=== PATIENT | male | born 1965 | race Caucasian/White ===

== ENCOUNTER 2017-06-02 15:44 | Inpatient (IN) | payer SELFPAY ==
[~2017-06-02] VITALS: Ht 185.4 cm; Wt 80.0 kg
[2017-06-02 15:56] VITALS: BP 174/98; PULSE 71; RESP 18; TEMP 98.1; O2SAT 99
--- NOTE | 2017-06-02 16:34 | RADRPT ---
EXAM DATE/TIME: 06/02/2017 16:21 [facility] COMPARISON: No previous studies available for comparison. INDICATIONS : Right ankle pain after fall. MEDICAL HISTORY : None. SURGICAL HISTORY : None. ENCOUNTER: Initial ACUITY: 1 day PAIN SCORE: 8/10 LOCATION: Right ankle. FINDINGS: Three view exam was performed of the right ankle. Trimalleolar fx with displacement. Disruption of a nkle mortis. Soft tissue swelling. CONCLUSION: Trilmalleolar fx. Phong Garcia MD on June 02, 2017 at 16:29 Board Certified Radiologist. This report was verified electronically.
--- NOTE | 2017-06-02 16:49 | RADRPT ---
EXAM DATE/TIME: 06/02/2017 16:25 [facility] COMPARISON: No previous studies available for comparison. INDICATIONS : Right foot pain after fall. MEDICAL HISTORY : None. SURGICAL HISTORY : None. ENCOUNTER: Initial ACUITY: 1 day PAIN SCORE: 8/10 LOCATION: Right foot. FINDINGS: Bimalleolar ankle fracture. Probable avulsion tarsal navicular., Difficult to appreciate because of positioning The forefoot intact. CT scan can be used to evaluate the hindfoot as necessary. CONCLUSION: Bimalleolar ankle fracture Possible small avulsion tarsal navicular. Romeo Garcia MD FACR on June 02, 2017 at 16:45 Board Certified Radiologist. This report was verified electronically.
--- NOTE | 2017-06-02 16:49 | PD ---
HPI Chief Complaint: Fall Time Seen by Provider: 16:23 Travel History International Travel<30 days: No Contact w/Intl Traveler<30days: No Traveled to known affect area: No History of Present Illness HPI 52-year-old male that presents to the ED for evaluation of right ankle injury. Per patient she was working for [employer] when he was on a step that was wet and he states knee went inward. Per patient he developed but severe deformity he called ambulance because he cannot walk on it. He was given morphine for the pain with some relief. He denies any chest pain or shortness of breath. No head injury. No previous injuries. His Czech speaker only and dermatology physician assistant services were offered but patient feels comfortable my Czech so he declined motor vehicle parts interpreter. He states that his pain currently is 4 out of 10 on the ankle. He denies any numbness, tingling, weakness. No open sores. Has no allergies to medication. Hasn't seen anybody for this. Injury occurred 1 hour ago. This is worker's comp. [facility] Past Medical History Medical History: Denies Significant Hx ?: Not Past Surgical History Surgical History: No Previous Surgery Social History Alcohol Use: No Tobacco Use: No Substance Use: No Allergies-Medications (Allergen,Severity, Reaction): Coded Allergies: No Known Allergies (Verified Allergy, Unknown, 06/02/17) Reported Meds & Prescriptions Reported Meds & Active Scripts Active No Active Prescriptions or Reported Medications Review of Systems Except as stated in HPI: all other systems reviewed are Neg Physical Exam Narrative GENERAL: SKIN: Warm and dry. HEAD: Atraumatic. Normocephalic. EYES: Pupils equal and round. No scleral icterus. No injection or drainage. ENT: No nasal bleeding or discharge. Mucous membranes pink and moist. Tongue is midline. No uvula deviation. NECK: Trachea midline. No JVD. CARDIOVASCULAR: Regular rate and rhythm. No murmurs, S3, S4. RESPIRATORY: No accessory muscle use. Clear to auscultation. Breath sounds equal bilaterally. GASTROINTESTINAL: Abdomen soft, non-tender, nondistended. Hepatic and splenic margins not palpable. MUSCULOSKELETAL: Extremities without clubbing, cyanosis, or edema. No obvious deformities. Full range of motion of the upper and lower extremities bilaterally. 2+ pulses bilaterally. Patient does have obvious deformity to the right ankle with bruising and swelling noted. Appears to be very unstable. Does appear to have good pulses and good capillary refill. Sensation intact. No open sores noted. NEUROLOGICAL: Awake and alert. No obvious cranial nerve deficits. Motor grossly within normal limits. Five out of 5 muscle strength in the arms and legs. Normal speech. PSYCHIATRIC: Appropriate mood and affect; insight and judgment normal. Data Data Last Documented VS Vital Signs Date Time Temp Pulse Resp B/P (MAP) Pulse Ox O2 Delivery O2 Flow Rate FiO2 06/02/17 16:57 69 15 111/68 (82) 99 Room Air 06/02/17 15:56 98.1 Orders Orders Ankle, Complete ([id number]) (06/02/17 16:10) Foot, Complete ([id number]) (06/02/17 16:10) Ice/Cold Pack (06/02/17 16:10) Electrocardiogram (06/02/17 16:31) Complete Blood Count With Diff (06/02/17 16:31) Basic Metabolic Panel (Bmp) (06/02/17 16:31) Prothrombin Time / Inr (Pt) (06/02/17 16:31) Act Partial Throm Time (Ptt) (06/02/17 16:31) Urinalysis - C+S If Indicated (06/02/17 16:31) Magnesium (Mg) (06/02/17 16:31) Chest, Single Ap (06/02/17 16:31) Iv Access Insert/Monitor (06/02/17 16:31) Splint Or Brace Apply/Monitor (06/02/17 16:31) Propofol 200 Mg/20 Ml Inj (Diprivan 200 (06/02/17 18:30) Ankle, Limited (Ap&Lat) (06/02/17 ) Morphine Inj (Morphine Inj) (06/02/17 19:00) Admit Order (Ed Use Only) (06/02/17 ) Labs Laboratory Tests Test 06/02/17 17:00 White Blood Count 11.9 TH/MM3 Red Blood Count 5.03 MIL/MM3 Hemoglobin 15.5 GM/DL Hematocrit 46.6 % Mean Corpuscular Volume 92.6 FL Mean Corpuscular Hemoglobin 30.8 PG Mean Corpuscular Hemoglobin Concent 33.3 % Red Cell Distribution Width 13.0 % Platelet Count 191 TH/MM3 Mean Platelet Volume 9.6 FL Neutrophils (%) (Auto) 86.1 % Lymphocytes (%) (Auto) 7.8 % Monocytes (%) (Auto) 5.5 % Eosinophils (%) (Auto) 0.3 % Basophils (%) (Auto) 0.3 % Neutrophils # (Auto) 10.3 TH/MM3 Lymphocytes # (Auto) 0.9 TH/MM3 Monocytes # (Auto) 0.7 TH/MM3 Eosinophils # (Auto) 0.0 TH/MM3 Basophils # (Auto) 0.0 TH/MM3 CBC Comment DIFF FINAL Differential Comment Prothrombin Time 10.4 SEC Prothromb Time International Ratio 1.0 RATIO Activated Partial Thromboplast Time 24.6 SEC Blood Urea Nitrogen 15 MG/DL Creatinine 1.06 MG/DL Random Glucose 88 MG/DL Calcium Level 8.5 MG/DL Magnesium Level 1.8 MG/DL Sodium Level 138 MEQ/L Potassium Level 4.0 MEQ/L Chloride Level 103 MEQ/L Carbon Dioxide Level 27.8 MEQ/L Anion Gap 7 MEQ/L Estimat Glomerular Filtration Rate 74 ML/MIN MDM Medical Decision Making Medical Screen Exam Complete: Yes Emergency Medical Condition: Yes Medical Record Reviewed: Yes Differential Diagnosis Fracture versus sprain versus strain versus dislocation Narrative Course 52-year-old male that presents to the ED for evaluation of ankle pain. Patient was properly examined and was found to have signs and symptoms concerning for fracture. X-rays were done. X-rays show significant fracture of the right ankle with displacement. Case will be signed out to incoming provider pending disposition and plan. I did spoke with Dr Pimentel over the phone who wanted us to reduce fracture and splint, admit to medicine and NPO after midnight. Scripts No Active Prescriptions or Reported Meds Luis Anderson Jun 02, 2017 16:49
[2017-06-02 16:57] VITALS: BP 111/68; PULSE 69; RESP 15; O2SAT 99
--- NOTE | 2017-06-02 17:25 | RADRPT ---
EXAM DATE/TIME: 06/02/2017 17:16 [facility] COMPARISON: No previous studies available for comparison. INDICATIONS : Evaluate for pneumonia, pneumothorax, or communicable disease. Pre op ankle surgery. MEDICAL HISTORY : None. SURGICAL HISTORY : None. ENCOUNTER: Initial ACUITY: 1 day PAIN SCORE: 0/10 LOCATION: Bilateral chest FINDINGS: A single view of the chest demonstrates the lungs to be symmetrically aerated without evidence of mas s, infiltrate or effusion. The cardiomediastinal contours are unremarkable. Osseous structures are intact. CONCLUSION: 1. No acute cardiopulmonary disease. Parth Escalante MD on June 02, 2017 at 17:23 Board Certified Radiologist. This report was verified electronically.
[2017-06-02 17:37] LABS: AUTOMATED NEUTROPHIL # 10.3 TH/MM3 (1.8-7.7); BASOPHIL % 0.3 % (0.0-2.0); EOSINOPHIL % 0.3 % (0.0-4.0); HEMATOCRIT 46.6 % (39.0-51.0); HEMOGLOBIN 15.5 GM/DL (13.0-17.0); LYMPH % 7.8 % (9.0-44.0); LYMPHOCYTE # 0.9 TH/MM3 (1.0-4.8); MEAN CELL VOLUME 92.6 FL (80.0-100.0); MEAN CORPUSCULAR HEMOGLOBIN 30.8 PG (27.0-34.0); MEAN CORPUSCULAR HGB CONC 33.3 % (32.0-36.0); MEAN PLATELET VOLUME 9.6 FL (7.0-11.0); MONO % 5.5 % (0.0-8.0); MONOCYTE # 0.7 TH/MM3 (0-0.9); NEUT % 86.1 % (16.0-70.0); PLATELET COUNT 191 TH/MM3 (150-450); RED BLOOD COUNT 5.03 MIL/MM3 (4.50-5.90); WHITE BLOOD COUNT 11.9 TH/MM3 (4.0-11.0)
[2017-06-02 17:43] LABS: PROTHROMBIN TIME - PATIENT 10.4 SEC (9.8-11.6)
[2017-06-02 17:51] LABS: BICARBONATE 27.8 MEQ/L (21.0-32.0); CALCIUM 8.5 MG/DL (8.5-10.1); CREATININE 1.06 MG/DL (0.60-1.30); MAGNESIUM 1.8 MG/DL (1.5-2.5)
--- NOTE | 2017-06-02 18:24 | PD ---
Physical Exam Date Seen by Provider: Jun 02, 2017 Time Seen by Provider: 18:21 Narrative I was asked by the attending physician, Dr. Clark, to perform conscious sedation with reduction of right trimalleolar fracture. Data Data Last Documented VS Vital Signs Date Time Temp Pulse Resp B/P (MAP) Pulse Ox O2 Delivery O2 Flow Rate FiO2 06/02/17 16:57 69 15 111/68 (82) 99 Room Air 06/02/17 15:56 98.1 Orders Orders Ankle, Complete ([id number]) (06/02/17 16:10) Foot, Complete ([id number]) (06/02/17 16:10) Ice/Cold Pack (06/02/17 16:10) Electrocardiogram (06/02/17 16:31) Complete Blood Count With Diff (06/02/17 16:31) Basic Metabolic Panel (Bmp) (06/02/17 16:31) Prothrombin Time / Inr (Pt) (06/02/17 16:31) Act Partial Throm Time (Ptt) (06/02/17 16:31) Urinalysis - C+S If Indicated (06/02/17 16:31) Magnesium (Mg) (06/02/17 16:31) Chest, Single Ap (06/02/17 16:31) Iv Access Insert/Monitor (06/02/17 16:31) Splint Or Brace Apply/Monitor (06/02/17 16:31) Propofol 200 Mg/20 Ml Inj (Diprivan 200 (06/02/17 18:30) Ankle, Limited (Ap&Lat) (06/02/17 ) Morphine Inj (Morphine Inj) (06/02/17 19:00) Admit Order (Ed Use Only) (06/02/17 ) Labs Laboratory Tests Test 06/02/17 17:00 White Blood Count 11.9 TH/MM3 Red Blood Count 5.03 MIL/MM3 Hemoglobin 15.5 GM/DL Hematocrit 46.6 % Mean Corpuscular Volume 92.6 FL Mean Corpuscular Hemoglobin 30.8 PG Mean Corpuscular Hemoglobin Concent 33.3 % Red Cell Distribution Width 13.0 % Platelet Count 191 TH/MM3 Mean Platelet Volume 9.6 FL Neutrophils (%) (Auto) 86.1 % Lymphocytes (%) (Auto) 7.8 % Monocytes (%) (Auto) 5.5 % Eosinophils (%) (Auto) 0.3 % Basophils (%) (Auto) 0.3 % Neutrophils # (Auto) 10.3 TH/MM3 Lymphocytes # (Auto) 0.9 TH/MM3 Monocytes # (Auto) 0.7 TH/MM3 Eosinophils # (Auto) 0.0 TH/MM3 Basophils # (Auto) 0.0 TH/MM3 CBC Comment DIFF FINAL Differential Comment Prothrombin Time 10.4 SEC Prothromb Time International Ratio 1.0 RATIO Activated Partial Thromboplast Time 24.6 SEC Blood Urea Nitrogen 15 MG/DL Creatinine 1.06 MG/DL Random Glucose 88 MG/DL Calcium Level 8.5 MG/DL Magnesium Level 1.8 MG/DL Sodium Level 138 MEQ/L Potassium Level 4.0 MEQ/L Chloride Level 103 MEQ/L Carbon Dioxide Level 27.8 MEQ/L Anion Gap 7 MEQ/L Estimat Glomerular Filtration Rate 74 ML/MIN [facility] Medical Record Reviewed: Yes Supervised Visit with VERONIQUE: No Interpretation(s) Laboratory Tests Test 06/02/17 17:00 White Blood Count 11.9 TH/MM3 Red Blood Count 5.03 MIL/MM3 Hemoglobin 15.5 GM/DL Hematocrit 46.6 % Mean Corpuscular Volume 92.6 FL Mean Corpuscular Hemoglobin 30.8 PG Mean Corpuscular Hemoglobin Concent 33.3 % Red Cell Distribution Width 13.0 % Platelet Count 191 TH/MM3 Mean Platelet Volume 9.6 FL Neutrophils (%) (Auto) 86.1 % Lymphocytes (%) (Auto) 7.8 % Monocytes (%) (Auto) 5.5 % Eosinophils (%) (Auto) 0.3 % Basophils (%) (Auto) 0.3 % Neutrophils # (Auto) 10.3 TH/MM3 Lymphocytes # (Auto) 0.9 TH/MM3 Monocytes # (Auto) 0.7 TH/MM3 Eosinophils # (Auto) 0.0 TH/MM3 Basophils # (Auto) 0.0 TH/MM3 CBC Comment DIFF FINAL Differential Comment Prothrombin Time 10.4 SEC Prothromb Time International Ratio 1.0 RATIO Activated Partial Thromboplast Time 24.6 SEC Blood Urea Nitrogen 15 MG/DL Creatinine 1.06 MG/DL Random Glucose 88 MG/DL Calcium Level 8.5 MG/DL Magnesium Level 1.8 MG/DL Sodium Level 138 MEQ/L Potassium Level 4.0 MEQ/L Chloride Level 103 MEQ/L Carbon Dioxide Level 27.8 MEQ/L Anion Gap 7 MEQ/L Estimat Glomerular Filtration Rate 74 ML/MIN Last Impressions Chest X-Ray 06/02/17 1631 Signed Impressions: Service Date/Time: Friday, June 02, 2017 17:16 - CONCLUSION: 1. No acute cardiopulmonary disease. Parth Escalante MD Foot X-Ray 06/02/17 1610 Signed Impressions: Service Date/Time: Friday, June 02, 2017 16:25 - CONCLUSION: Bimalleolar ankle fracture Possible small avulsion tarsal navicular. Romeo Garcia MD FACR Ankle X-Ray 06/02/17 1610 Signed Impressions: Service Date/Time: Friday, June 02, 2017 16:21 - CONCLUSION: Trilmalleolar fx. Phong Garcia MD Differential Diagnosis Differential diagnosis includes fracture, dislocation, contusion, hematoma, sprain, strain, fracture with dislocation. Narrative Course The patient was initially evaluated by the attending physician, Dr. Clark. Please refer to the initial history, physical, diagnostic evaluation, treatment modality plan. I was asked by the attending physician to perform conscious sedation and reduced the right trimalleolar fracture. I discussed risk and benefits with the family member who translated to the patient per his request. The patient has no previous medical problems, has undergone colonoscopy with sedation in the past without difficulty. He denies any history of respiratory or cardiac issues. He denies any allergies. The patient was placed on cardiac telemetry monitoring and continuous pulse oximetry monitoring. O2 via nasal cannula was placed and the patient was placed on CO2 monitoring. The patient was administered propofol intravenously in the right ankle was reduced. The ankle was then splinted using a Flores splint, the patient was neurovascularly intact afterwards. Postreduction x-ray was performed. X-ray shows persistent widening of the mortise, fracture was unstable. Procedures Procedure Narrative After the risks and benefits were discussed the following procedure was performed: MODERATE SEDATION: The patient was placed on a threat monitoring analyst and pulse oximetry. An ambu bag and suction was immediately available at bedside. The patient was monitored by the nurse. Oxygen saturation, heart rate and blood pressure were monitored. Procedural sedation was acheived using [*] . The patient was observed until awake and alert. Procedural Sedation time in attendance was 30 minutes. The right ankle was reduced under conscious sedation using propofol. The ankle was reduced and then placed in a Flores splint. The patient was neurovascularly intact. Postreduction x-ray was obtained. The patient tolerated the procedure without difficulty. Diagnosis Primary Impression: Closed right trimalleolar fracture Qualified Codes: S82.851A - Displaced trimalleolar fracture of right lower leg , initial encounter for closed fracture Admitting Information Admitting Physician Requests: Admit Scripts No Active Prescriptions or Reported Meds Condition: Stable Ellis Farooq MD Jun 02, 2017 18:24
[2017-06-02] MEDS ORDERED: PROPOFOL 200 MG/20 ML AMP IV ONE (18:30)
[2017-06-02] MEDS ORDERED: MORPHINE SULFATE 2 MG/ML INJ IV PUSH ONE (19:00)
[2017-06-02] MEDS ORDERED: NALOXONE HCL 0.4 MG/ML AMP IV PUSH PRN (19:15)
--- NOTE | 2017-06-02 19:17 | RADRPT ---
EXAM DATE/TIME: 06/02/2017 18:41 [facility] COMPARISON: No previous studies available for comparison. INDICATIONS : Post reduction right ankle fracture MEDICAL HISTORY : None. SURGICAL HISTORY : None. ENCOUNTER: Initial ACUITY: 1 day PAIN SCORE: Non-responsive. LOCATION: Bilateral chest FINDINGS: Two view examination was performed of the right ankle with overlying casting material. There are frac tures of the distal tibia and fibula. There is widening of the medial mortise with transverse fractur e through the base of the medial malleolus. There is a slightly impacted fibular fracture with an obl ique fracture on the lateral film. The calcaneus and the tail is are unremarkable. CONCLUSION: Fractures of the tibia and fibula as described above. Persistent widening of the medial mortise. Lico Myrick MD on June 02, 2017 at 19:13 Board Certified Radiologist. This report was verified electronically.
[2017-06-02 20:34] VITALS: BP 116/73; PULSE 82; RESP 18; O2SAT 100
[2017-06-02 20:58] LABS: BILIRUBIN, URINE NEG (NEG); BLOOD, URINE NEG (NEG); GLUCOSE,URINE NEG (NEG); KETONE, URINE 10 mg/dL (NEG); MUCUS URINE FEW /lpf (OCC); NITRITE,URINE NEG (NEG); URINE COLOR YELLOW (YELLW/STRAW); URINE LEUKOCYTE ESTERASE NEG (NEG)
[2017-06-02 21:05] VITALS: BP 146/79; PULSE 70; RESP 17; TEMP 98.8; O2SAT 98
[2017-06-02] MEDS ORDERED: POVIDONE IODINE 5% (ANTISEPSIS KIT) 4 APPLICATIONS EACH NARE PRN (22:45)
[2017-06-02] MEDS ORDERED: CHLORHEXIDINE GLUCONATE 2 % 1 PACK (2 CLOTHS) TOPICAL PRN (22:45)
[2017-06-02] MEDS ORDERED: INSULIN HUMAN REGULAR 1,000 UNITS/10 ML VIAL SQ PRN (22:45)
[2017-06-02] MEDS ORDERED: METOPROLOL TARTRATE 25 MG TAB PO PRN (22:45)
[2017-06-02] MEDS ORDERED: LACTATED RINGER'S 1000 ML IV PRN (22:45)
[2017-06-02] MEDS ORDERED: SODIUM CHLORID 0.9% 500 ML IV PRN (22:45)
[2017-06-02] MEDS: MORPHINE SULFATE 2 MG/ML INJ IV PUSH PRN (22:51)
[2017-06-02] MEDS: SODIUM CHLORIDE 0.9% FLUSH 10 ML FLUSH IV FLUSH SCH (22:51)
--- NOTE | 2017-06-02 23:20 | HHI.HP ---
HPI Service [facility] Primary Care Physician Unknown Admission Diagnosis trimalleolar fracture Diagnoses: (1) Closed right trimalleolar fracture Chief Complaint: slip and fall while working; subsequent right ankle deformity Travel History International Travel<30 Days: No Contact w/Intl Traveler <30 Da: No Traveled to Known Affected Are: No History of Present Illness Mr. 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 He had a significant deformity to right ankle and reported to the ED. Radiographic examination in the ED showed trimalleolar fracture with displacement and a manual reduction was attempted with sedation but was not effective in realigning bones. The patient is admitted to the hospitalist service for pre- operative management and orthopedic surgery is consulted for surgical repair in a.m. The patient is seen in his hospital room. The [employer] tele-interpretation system is used for communication. Patient speaks minimal Liberian and prefers instruction in Togolese. The patient states that he was at work delivering for [employer] when he slipped on a wet floor with his right foot and fell on the ground. He said his right ankle appeared quite deformed and he was extremely scared initially. He was unable to bear weight on the right ankle and had to be brought to the hospital for evaluation. He reports minimal right ankle pain at the time of my visit after being medicated with when necessary IV morphine. He reports satisfaction with current analgesic regimen. He reported that severe pain in the right ankle occurred once he came to the ER. He denies any recent illness, fever, chills, cough, chest pain, shortness of breath, nausea, vomiting, diarrhea, or constipation. Review of Systems Except as stated in HPI: all other systems reviewed are Neg Past Family Social History Past Medical History JACK Tobacco Abuse . Past Surgical History Colonoscopy last year Cardiac catheterization 8 years ago - no CAD was found per patient . Reported Medications Denies any routine medications . Allergies: Coded Allergies: No Known Allergies (Verified Allergy, Unknown, 06/02/17) Active Ordered Medications Current Medications Propofol (Diprivan 200 Mg/20 ml Inj) 100 mg ONCE ONCE IV Last administered on 06/02/17at 18:55; Start 06/02/17 at 18:30; Stop 06/02/17 at 18:31; Status DC Morphine Sulfate (Morphine Inj) 4 mg ONCE ONCE IV PUSH Last administered on 03/10at 20:32; Start 06/02/17 at 19:00; Stop 06/02/17 at 19:01; Status DC Sodium Chloride (NS Flush) 2 ml UNSCH PRN IV FLUSH FLUSH AFTER USING IV ACCESS ; Start 06/02/17 at 19:15 Sodium Chloride (NS Flush) 2 ml BID IV FLUSH Last administered on 06/02/17at 22: 51; Start 06/02/17 at 21:00 Naloxone HCl (Narcan Inj) 0.4 mg UNSCH PRN IV PUSH SEE LABEL COMMENTS; Start at 19:15 Morphine Sulfate (Morphine Inj) 2 mg Q3H PRN IV PUSH pain >5 Last administered on 06/02/17at 22:51; Start 06/02/17 at 19:15 Lactated Ringer's 1,000 ml @ 30 mls/hr Q24H PRN IV SEE LABEL COMMENTS; Start at 22:45; Stop 06/05/17 at 22:44 Sodium Chloride 500 ml @ 30 mls/hr [id number] PRN IV SEE LABEL COMMENTS; Start 03/10 at 22:45; Stop 06/05/17 at 22:44 Metoprolol Tartrate (Lopressor) 25 mg HUMANE OFFICER PRN PO SEE LABEL COMMENTS; Start 06/02/17 at 22:45; Stop 06/05/17 at 22:44 Povidone Iodine (Betadine 5% Antisepsis Kit) 1 applic [employer]ANE [employer]ICER PRN EACH NARE SEE LABEL COMMENTS; Start 06/02/17 at 22:45; Stop 06/05/17 at 22:44 Chlorhexidine Gluconate (Chlorhexidine 2% Cloth) 3 pack [employer]ER PRN TOPICAL SEE LABEL COMMENTS; Start 06/02/17 at 22:45; Stop 06/05/17 at 22:44 Insulin Human Regular (NovoLIN R INJ) See Protocol Table ... HUMANE OFFICER PRN SQ SEE PROTOCOL TABLE; Start 06/02/17 at 22:45; Stop 06/05/17 at 22:44 . Family History Father with prostate cancer, pancreatic cancer, and hypertension Mother with hypertension at age 79 y/o No family history of adverse anesthesia reactions . Social History Tobacco: Smokes 6-7 cigarettes per day Wednesday through Wednesday only Alcohol: Very rare social use Illicit Drugs: Denies - states has never used . Physical Exam Vital Signs Vital Signs Date Time Temp Pulse Resp B/P (MAP) Pulse Ox O2 Delivery O2 Flow Rate FiO2 06/02/17 21:05 98.8 70 17 146/79 (101) 98 06/02/17 20:50 06/02/17 20:37 Nasal Cannula 2.00 06/02/17 20:34 82 18 116/73 (87) 100 Nasal Cannula 2.00 06/02/17 16:57 69 15 111/68 (82) 99 Room Air 06/02/17 15:56 98.1 71 18 174/98 (123) 99 Physical Exam GENERAL: This is a pleasant Togolese-speaking male patient, in no apparent distress. SKIN: No rashes, ecchymoses or lesions. Cool and dry. HEAD: Atraumatic. Normocephalic. EYES: No scleral icterus. No injection or drainage. ENT: Nose without bleeding, purulent drainage. NECK: Trachea midline. No JVD or lymphadenopathy. CARDIOVASCULAR: Regular rate and rhythm without murmurs, gallops, or rubs. RESPIRATORY: Clear to auscultation. Breath sounds equal bilaterally. No wheezes , rales, or rhonchi. GASTROINTESTINAL: Abdomen soft, non-tender, nondistended. No guarding. MUSCULOSKELETAL: Extremities without clubbing, cyanosis. No calf tenderness on left. Right lower extremity in splint - able to wiggle toes, reports intact sensation, capillary refill is brisk. NEUROLOGICAL: Awake and alert. Motor and sensory grossly within normal limits. Normal speech. . Laboratory Laboratory Tests Test 06/02/17 17:00 06/02/17 20:30 White Blood Count 11.9 Red Blood Count 5.03 Hemoglobin 15.5 Hematocrit 46.6 Mean Corpuscular Volume 92.6 Mean Corpuscular Hemoglobin 30.8 Mean Corpuscular Hemoglobin Concent 33.3 Red Cell Distribution Width 13.0 Platelet Count 191 Mean Platelet Volume 9.6 Neutrophils (%) (Auto) 86.1 Lymphocytes (%) (Auto) 7.8 Monocytes (%) (Auto) 5.5 Eosinophils (%) (Auto) 0.3 Basophils (%) (Auto) 0.3 Neutrophils # (Auto) 10.3 Lymphocytes # (Auto) 0.9 Monocytes # (Auto) 0.7 Eosinophils # (Auto) 0.0 Basophils # (Auto) 0.0 CBC Comment DIFF FINAL Differential Comment Prothrombin Time 10.4 Prothromb Time International Ratio 1.0 Activated Partial Thromboplast Time 24.6 Blood Urea Nitrogen 15 Creatinine 1.06 Random Glucose 88 Calcium Level 8.5 Magnesium Level 1.8 Sodium Level 138 Potassium Level 4.0 Chloride Level 103 Carbon Dioxide Level 27.8 Anion Gap 7 Estimat Glomerular Filtration Rate 74 Urine Color YELLOW Urine Turbidity CLEAR Urine pH 5.0 Urine Specific [place] 1.021 Urine Protein NEG Urine Glucose (UA) NEG Urine Ketones 10 Urine Occult Blood NEG Urine Nitrite NEG Urine Bilirubin NEG Urine Urobilinogen LESS THAN 2.0 Urine Leukocyte Esterase NEG Urine WBC 1 Urine Mucus FEW Microscopic Urinalysis Comment CULT NOT INDICATED Result Diagram: 06/02/17 1700 06/02/17 1700 Imaging Last Impressions Chest X-Ray 06/02/17 1631 Signed Impressions: Service Date/Time: Friday, June 02, 2017 17:16 - CONCLUSION: 1. No acute cardiopulmonary disease. Parth Escalante MD Foot X-Ray 06/02/17 1610 Signed Impressions: Service Date/Time: Friday, June 02, 2017 16:25 - CONCLUSION: Bimalleolar ankle fracture Possible small avulsion tarsal navicular. Romeo Garcia MD FACR Ankle X-Ray 06/02/17 1610 Signed Impressions: Service Date/Time: Friday, June 02, 2017 16:21 - CONCLUSION: Trilmalleolar fx. Phong Garcia MD . Caprini VTE Risk Assessment Caprini VTE Risk Assessment: Mod/High Risk (score >= 2) Caprini Risk Assessment Model Point Value = 1 Point Value = 2 Point Value = 3 Point Value = 5 Age 41-60 Minor surgery BMI > 25 kg/m2 Swollen legs Varicose veins or History of unexplained or recurrent spontaneous Oral contraceptives or hormone replacement Sepsis (< 1 month) Serious lung disease, including pneumonia (< 1 month) Abnormal pulmonary function Acute myocardial infarction Congestive heart failure (< 1 month) History of inflammatory bowel disease Medical patient at bed rest Age 61-74 Arthroscopic surgery Major open surgery (> 45 min) Laparoscopic surgery (> 45 min) Malignancy Confined to bed (> 72 hours) Immobilizing plaster cast Central venous access Age >= 75 History of VTE Family history of VTE Factor V Leiden Prothrombin [id number] Lupus anticoagulant Anticardiolipin antibodies Elevated serum homocysteine Heparin-induced thrombocytopenia Other congenital or acquired thrombophilia Stroke (< 1 month) Elective arthroplasty Hip, pelvis, or leg fracture Acute spinal cord injury (< 1 month) Prophylaxis Regimen Total Risk Factor Score Risk Level Prophylaxis Regimen 0-1 Low Early ambulation 2 Moderate Order ONE of the following: *Sequential Compression Device (SCD) *Heparin 5000 units SQ BID 3-4 Higher Order ONE of the following medications: *Heparin 5000 units SQ TID *Enoxaparin/Lovenox 40 mg SQ daily (WT < 150 kg, CrCl > 30 mL/min) *Enoxaparin/Lovenox 30 mg SQ daily (WT < 150 kg, CrCl > 10-29 mL/min) *Enoxaparin/Lovenox 30 mg SQ BID (WT < 150 kg, CrCl > 30 mL/min) AND/OR *Sequential Compression Device (SCD) 5 or more Highest Order ONE of the following medications: *Heparin 5000 units SQ TID (Preferred with Epidurals) *Enoxaparin/Lovenox 40 mg SQ daily (WT < 150 kg, CrCl > 30 mL/min) *Enoxaparin/Lovenox 30 mg SQ daily (WT < 150 kg, CrCl > 10-29 mL/min) *Enoxaparin/Lovenox 30 mg SQ BID (WT < 150 kg, CrCl > 30 mL/min) AND *Sequential Compression Device (SCD) Assessment and Plan Problem List: (1) Closed right trimalleolar fracture ICD Code: S82.851A - Displaced trimalleolar fracture of right lower leg, initial encounter for closed fracture Status: Acute (2) Tobacco abuse ICD Code: Z72.0 - Tobacco use Assessment and Plan Mr. 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 He had a significant deformity to right ankle and reported to the ED. Radiographic examination in the ED showed trimalleolar fracture with displacement and a manual reduction was attempted with sedation but was not effective in realigning bones. The patient is admitted to the hospitalist service for pre- operative management and orthopedic surgery is consulted for surgical repair in a.m. Closed right trimalleolar fracture - right ankle splinted - orthopedic surgeon consulted - Dr. Wing Kramer - Morphine 2 mg IV q3h PRN pain Tobacco abuse - recommended smoking cessation JACK - patient was advised to lose weight - CPAP not recommended yet - discussed with RN to monitor patient closely DVT prophylaxis - SCDs/TEDs Discussed Condition With Patient, RN, and Dr. Santana . Physician Certification 2 Midnight Certification Type: Admission for Inpatient Services Order for Inpatient Services The services are ordered in accordance with Medicare regulations or non- Medicare payer requirements, as applicable. In the case of services not specified as inpatient-only, they are appropriately provided as inpatient services in accordance with the 2-midnight benchmark. Estimated LOS (days): 2 days is the estimated time the patient will need to remain in the hospital, assuming treatment plan goals are met and no additional complications. Post-Hospital Plan: Home Problem Qualifiers (1) Closed right trimalleolar fracture: Qualified Codes: S82.851A - Displaced trimalleolar fracture of right lower leg , initial encounter for closed fracture Aditi Douglas Jun 02, 2017 23:19
[2017-06-03] VITALS (14 sets, daily range): BP systolic 132–147; BP diastolic 74–87; PULSE 54–81; RESP 17–18; TEMP 97.5–99.7; O2SAT 98–100
[2017-06-03] MEDS: MORPHINE SULFATE 2 MG/ML INJ IV PUSH PRN ×4 (02:16→11:07)
[2017-06-03] MEDS: SODIUM CHLORIDE 0.9% FLUSH 10 ML FLUSH IV FLUSH PRN ×4 (02:16→12:57)
[2017-06-03 07:57] LABS: AUTOMATED NEUTROPHIL # 6.3 TH/MM3 (1.8-7.7); BASOPHIL % 0.3 % (0.0-2.0); EOSINOPHIL # 0.1 TH/MM3 (0-0.4); EOSINOPHIL % 0.7 % (0.0-4.0); HEMATOCRIT 45.3 % (39.0-51.0); HEMOGLOBIN 15.3 GM/DL (13.0-17.0); LYMPH % 17.8 % (9.0-44.0); LYMPHOCYTE # 1.6 TH/MM3 (1.0-4.8); MEAN CELL VOLUME 92.1 FL (80.0-100.0); MEAN CORPUSCULAR HEMOGLOBIN 31.1 PG (27.0-34.0); MEAN CORPUSCULAR HGB CONC 33.8 % (32.0-36.0); MEAN PLATELET VOLUME 9.5 FL (7.0-11.0); MONOCYTE # 0.8 TH/MM3 (0-0.9); NEUT % 72.2 % (16.0-70.0); PLATELET COUNT 184 TH/MM3 (150-450); RED BLOOD COUNT 4.92 MIL/MM3 (4.50-5.90); RED CELL DISTRIBUTION WIDTH 13.2 % (11.6-17.2); WHITE BLOOD COUNT 8.8 TH/MM3 (4.0-11.0)
[2017-06-03] MEDS: SODIUM CHLORIDE 0.9% FLUSH 10 ML FLUSH IV FLUSH SCH ×2 (08:11→20:11)
[2017-06-03 08:14] LABS: BICARBONATE 26.1 MEQ/L (21.0-32.0); CALCIUM 8.3 MG/DL (8.5-10.1); CREATININE 1.16 MG/DL (0.60-1.30)
[2017-06-03] MEDS ORDERED: PROPOFOL 200 MG/20 ML AMP IV ONE (12:00)
[2017-06-03] MEDS ORDERED: ONDANSETRON HCL 4 MG/2 ML VIAL IV ONE (12:00)
[2017-06-03] MEDS ORDERED: ePHEDrine/NS 25 MG/5 ML SYRINGE IV ONE (12:00)
[2017-06-03] MEDS ORDERED: LIDOCAINE HCL 1% PF 5 ML SYRINGE OTHER ONE (12:00)
[2017-06-03] MEDS ORDERED: DEXAMETHASONE SOD PHOS 4 MG/ML VIAL IV ONE (12:00)
--- NOTE | 2017-06-03 12:39 | RADRPT ---
EXAM DATE/TIME: 06/03/2017 12:10 [facility] COMPARISON: CT ANKLE RIGHT W/O CONTRAST, June 03, 2017, 12:10. INDICATIONS : Right ankle fracture status post fall. RADIATION DOSE: 7.29 CTDIvol (mGy) ; Combined studies MEDICAL HISTORY : None SURGICAL HISTORY : None. ENCOUNTER: Initial ACUITY: 1 day PAIN SCALE: 5/10 LOCATION: Right ankle TECHNIQUE: Volumetric scanning of the foot was performed. Using automated exposure control and adjustment of th e mA and/or kV according to patient size, radiation dose was kept as low as reasonably achievable to obtain optimal diagnostic quality images. DICOM format image data is available electronically for re view and comparison. FINDINGS: BONES: No evidence of fracture. Alignment is within normal limits. Prominent os navicularis. JOINTS: No evidence of joint narrowing or effusion. SOFT TISSUES: Muscles, tendons, and neurovascular structures are grossly unremarkable. No evidence of mass, organiz ed fluid collection, or foreign body. CONCLUSION: Normal examination. Os navicularis without evidence of fracture. Tibia and fibula fractures better se en on the CT the ankle. Lico Myrick MD on June 03, 2017 at 12:35 Board Certified Radiologist. This report was verified electronically.
--- NOTE | 2017-06-03 13:13 | RADRPT ---
EXAM DATE/TIME: 06/03/2017 12:10 [facility] COMPARISON: No previous studies available for comparison. INDICATIONS : Right ankle fracture status post fall. RADIATION DOSE: 7.29 CTDIvol (mGy) ; Combined studies MEDICAL HISTORY : None SURGICAL HISTORY : None. ENCOUNTER: Initial ACUITY: 1 day PAIN SCALE: 5/10 LOCATION: Right ankle TECHNIQUE: Volumetric scanning of the ankle was performed. Using automated exposure control and adjustment of t he mA and/or kV according to patient size, radiation dose was kept as low as reasonably achievable to obtain optimal diagnostic quality images. DICOM format image data is available electronically for review and comparison. FINDINGS: CT Scan of the ankle was performed. There is a fracture through the posterior malleolus with some pr oximal displacement and posterior displacement of the fracture. The ankle Mortis is opened anteriorl y. There is a small triangular bone fragment between the distal tibia and the posterior malleolar fr agment. There is a transverse fragment of the medial malleolus which is still adjacent to the talus. The dis keke tibia has shifted medially and there is marked opening of the medial Mortis. There is an oblique fracture through the distal fibula metaphysis just at the level of the tibial blanca fond. There is slight medial angulation of the fibular fracture. The distal fibula does abut the di stal tibia. The talar dome is unremarkable. The calcaneus is unremarkable. CONCLUSION: Fractures of both the posterior and medial malleoli with widening of the tibia talar joint both anter iorly and medially. Oblique, slightly angled medial metaphyseal fracture. iLco Myrick MD on June 03, 2017 at 12:32 Board Certified Radiologist. This report was verified electronically.
--- NOTE | 2017-06-03 13:15 | HHI.PR ---
Subjective Remarks pain controlled no chornic medical problems, smoker no pain complains going for surgery today works at [employer] - missed a step and fall Objective Vitals Vital Signs Date Time Temp Pulse Resp B/P (MAP) Pulse Ox O2 Delivery O2 Flow Rate FiO2 06/03/17 11:25 58 06/03/17 09:16 54 06/03/17 08:00 97.5 57 18 134/76 (95) 99 06/03/17 07:37 72 06/03/17 06:44 70 06/03/17 04:05 98.6 70 18 142/82 (102) 99 06/03/17 04:00 70 06/03/17 00:05 99.7 74 18 144/83 (103) 98 06/03/17 00:00 81 06/02/17 23:06 98 Nasal Cannula 2.00 06/02/17 21:05 98.8 70 17 146/79 (101) 98 06/02/17 20:50 06/02/17 20:37 Nasal Cannula 2.00 06/02/17 20:34 82 18 116/73 (87) 100 Nasal Cannula 2.00 06/02/17 16:57 69 15 111/68 (82) 99 Room Air 06/02/17 15:56 98.1 71 18 174/98 (123) 99 I/O 06/02/17 06/02/17 06/02/17 06/03/17 06/03/17 06/03/17 07:00 15:00 23:00 07:00 15:00 23:00 Intake Total 240 ml 0 ml Output Total 175 ml Balance 240 ml -175 ml Intake Oral 240 ml 0 ml Output Urine Total 175 ml # Voids 0 # Bowel Movements 0 0 Result Diagram: 06/03/17 0642 06/03/17 0642 Imaging Last Impressions Lower Extremity CT 06/03/17 0000 Signed Impressions: Service Date/Time: May 12:10 - CONCLUSION: Normal examination. Os navicularis without evidence of fracture. Tibia and fibula fractures better seen on the CT the ankle. Lico Myrick MD Chest X-Ray 06/02/17 1631 Signed Impressions: Service Date/Time: Friday, June 02, 2017 17:16 - CONCLUSION: 1. No acute cardiopulmonary disease. Parth Escalante MD Foot X-Ray 06/02/17 1610 Signed Impressions: Service Date/Time: Friday, June 02, 2017 16:25 - CONCLUSION: Bimalleolar ankle fracture Possible small avulsion tarsal navicular. Romeo Garcia MD FACR Ankle X-Ray 06/02/17 1610 Signed Impressions: Service Date/Time: Friday, June 02, 2017 16:21 - CONCLUSION: Trilmalleolar fx. Phong Garcia MD Objective Remarks awake and alert,. no acute distress lungs clear regular rhythm abdomen soft right LE- - elastic dressin/splint in place A/P Problem List: (1) Closed right trimalleolar fracture ICD Code: S82.851A - Displaced trimalleolar fracture of right lower leg, initial encounter for closed fracture Status: Acute (2) Tobacco abuse ICD Code: Z72.0 - Tobacco use Assessment and Plan Mr. 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 He had a significant deformity to right ankle and reported to the ED. Radiographic examination in the ED showed trimalleolar fracture with displacement and a manual reduction was attempted with sedation but was not effective in realigning bones. The patient is admitted to the hospitalist service for pre- operative management and orthopedic surgery is consulted for surgical repair in a.m. Closed right trimalleolar fracture - right ankle splinted - orthopedic surgeon consulted - Dr. Wing Kramer- taking him to OR this pm - prn pain meds - PT eval post surgery Tobacco abuse - recommended smoking cessation - counselled JACK - patient was advised to lose weight - CPAP not recommended yet - discussed with RN to monitor patient closely DVT prophylaxis post op - will defer to Ortho - choice - SCDs/TEDs discussed with patient and at bedside DC planning- - per family- workman's comp Problem Qualifiers (1) Closed right trimalleolar fracture: Qualified Codes: S82.851A - Displaced trimalleolar fracture of right lower leg , initial encounter for closed fracture Ashley Deutsch MD Jun 03, 2017 13:15
[2017-06-03] MEDS ORDERED: ceFAZolin 2 GM PREMIX 50 ML ONE (13:40)
[2017-06-03] MEDS ORDERED: GENTAMICIN SULFATE 80 MG/2 ML VIAL ONE (13:46)
[2017-06-03] MEDS ORDERED: HYDROmorphone HCL PF 2 MG/ML VIAL ONE (13:59)
[2017-06-03] MEDS ORDERED: MORPHINE SULFATE 4 MG/ML INJ ONE (14:10)
[2017-06-03] MEDS ORDERED: BUPIVACAINE/EPINEPHRINE 0.25% 50 ML VIAL ONE (14:57)
[2017-06-03] MEDS ORDERED: MIDAZOLAM HCL 2 MG/2 ML VIAL ONE (15:10)
[2017-06-03] MEDS ORDERED: ACETAMINOPHEN 1000 MG/100 ML 100 ML IV ONE (15:12)
--- NOTE | 2017-06-03 16:16 | EKG ---
Date Performed: 06/02/2017 Time Performed: 16:58:06 PTAGE: 52 years EKG: Sinus rhythm WITH FIRST DEGREE AV BLOCK ABNORMAL ECG NO PREVIOUS TRACING DOCTOR: Vivian Blair Interpretating Date/Time 06/03/2017 16:14:42
--- NOTE | 2017-06-03 16:34 | PD.CONS ---
HPI Service Orthopedic Surgeons Consult Requested By Get Reason for Consult Fracture of the right ankle Primary Care Physician Unknown Admission Diagnosis trimalleolar fracture Diagnoses: (1) Closed right trimalleolar fracture Diagnosis: Principal (2) Tobacco abuse Diagnosis: Principal Chief Complaint: Pain in the right ankle after a fall History of Present Illness This patient is a 52-year-old white male who works for a [email or web address]. He was stepping off his truck when he misstepped came down several feet and landed awkwardly on his right ankle and foot. He has an obvious deformity and pain and could not ambulate. He was brought to [facility] emergency room. He was evaluated and treated. He was admitted to the medical service and I have been asked to see him in consultation regarding the same Review of Systems Constitutional: DENIES: Diaphoretic episodes, Fatigue, Fever, Weight gain, Weight loss, Chills, Dizziness, Change in appetite, Night Sweats Endocrine: DENIES: Heat/cold intolerance, Polydipsia, Polyuria, Polyphagia Eyes: DENIES: Blurred vision, Diplopia, Eye inflammation, Eye pain, Vision loss , Photosensitivity, Double Vision Ears, nose, mouth, throat: DENIES: Tinnitus, Hearing loss, Vertigo, Nasal discharge, Oral lesions, Throat pain, Hoarseness, Ear Pain, Running Nose, Epistaxis, Sinus Pain, Toothache, Odynophagia Respiratory: DENIES: Apneas, Cough, Snoring, Wheezing, Hemoptysis, Sputum production, Shortness of breath Cardiovascular: DENIES: Chest pain, Palpitations, Syncope, Dyspnea on Exertion , PND, Lower Extremity Edema, Orthopnea, Claudication Genitourinary: DENIES: Sexual dysfunction, Urinary frequency, Urinary incontinence, Urgency, Hematuria, Dysuria, Nocturia, Penile Discharge, Testicular Pain, Testicular Swelling Musculoskeletal: COMPLAINS OF: Joint pain, Joint Swelling Integumentary: DENIES: Abnormal pigmentation, Nail changes, Pruritus, Rash Hematologic/lymphatic: DENIES: Bruising, Lymphadenopathy Immunologic/allergic: DENIES: Eczema, Urticaria Neurologic: DENIES: Abnormal gait, Headache, Localized weakness, Paresthesias, Seizures, Speech Problems, Tremor, Poor Balance Psychiatric: DENIES: Anxiety, Confusion, Mood changes, Depression, Hallucinations, Agitation, Suicidal Ideation, Homicidal Ideation, Delusions Past Family Social History Past Medical History JACK Tobacco Abuse . Past Surgical History Colonoscopy last year Cardiac catheterization 8 years ago - no CAD was found per patient . Allergies: Coded Allergies: No Known Allergies (Verified Allergy, Unknown, 06/02/17) Active Ordered Medications Current Medications Medications (Trade) Dose Ordered Sig/Sari Route Start Time Stop Time Status Last Admin (NS Flush) 2 ml UNSCH PRN IV FLUSH 06/02/17 19:15 06/03/17 12:57 (NS Flush) 2 ml BID IV FLUSH 06/02/17 21:00 06/03/17 08:11 (Narcan Inj) 0.4 mg UNSCH PRN IV PUSH 06/02/17 19:15 Lactated Ringer's 1,000 ml @ 30 mls/hr Q24H PRN IV 06/02/17 22:45 06/05/17 22:44 06/03/17 12:57 Sodium Chloride 500 ml @ 30 mls/hr [id number] PRN IV 06/02/17 22:45 06/05/17 22:44 (Lopressor) 25 mg INTERFACE CONTROL OFFICER PRN PO 06/02/17 22:45 06/05/17 22:44 (Betadine 5% Antisepsis Kit) 1 applic INTERFACE CONTROL OFFICER PRN EACH NARE 06/02/17 22:45 06/05/17 22:44 (Chlorhexidine 2% Cloth) 3 pack INTERFACE CONTROL OFFICER PRN TOPICAL 06/02/17 22:45 06/05/17 22:44 (NovoLIN R INJ) See Protocol Table ... INTERFACE CONTROL OFFICER PRN SQ 06/02/17 22:45 06/05/17 22:44 (Morphine Inj) 4 mg Q3H PRN IV PUSH 06/03/17 04:15 06/03/17 11:07 Reported Meds & Active Scripts Active No Active Prescriptions or Reported Medications Family History Father with prostate cancer, pancreatic cancer, and hypertension Mother with hypertension at age 79 y/o No family history of adverse anesthesia reactions . Social History Tobacco: Smokes 6-7 cigarettes per day Wednesday through Wednesday only Alcohol: Very rare social use Illicit Drugs: Denies - states has never used . Physical Exam Vital Signs Vital Signs Date Time Temp Pulse Resp B/P (MAP) Pulse Ox O2 Delivery O2 Flow Rate FiO2 06/03/17 11:25 58 06/03/17 09:16 54 06/03/17 08:00 97.5 57 18 134/76 (95) 99 06/03/17 07:37 72 06/03/17 06:44 70 06/03/17 04:05 98.6 70 18 142/82 (102) 99 06/03/17 04:00 70 06/03/17 00:05 99.7 74 18 144/83 (103) 98 06/03/17 00:00 81 06/02/17 23:06 98 Nasal Cannula 2.00 06/02/17 21:05 98.8 70 17 146/79 (101) 98 06/02/17 20:50 06/02/17 20:37 Nasal Cannula 2.00 06/02/17 20:34 82 18 116/73 (87) 100 Nasal Cannula 2.00 06/02/17 16:57 69 15 111/68 (82) 99 Room Air Physical Exam HEENT: Normocephalic atraumatic pupils equal round reactive. NECK: Supple. No abnormal masses. Full range of motion. CHEST: Clear to auscultation with no rales or rhonchi's or wheezes. HEART: Regular rate and rhythm. No murmurs. ABDOMEN: Soft, nontender, no masses. Normal active bowel sounds. GENITOURINARY: Deferred MUSCULOSKELETAL: Right ankle is in a splint. Mild swelling. Alignment is satisfactory. Sensation is normal. The refill is satisfactory case Laboratory Laboratory Tests Test 06/02/17 17:00 06/02/17 20:30 06/03/17 06:42 White Blood Count 11.9 8.8 Red Blood Count 5.03 4.92 Hemoglobin 15.5 15.3 Hematocrit 46.6 45.3 Mean Corpuscular Volume 92.6 92.1 Mean Corpuscular Hemoglobin 30.8 31.1 Mean Corpuscular Hemoglobin Concent 33.3 33.8 Red Cell Distribution Width 13.0 13.2 Platelet Count 191 184 Mean Platelet Volume 9.6 9.5 Neutrophils (%) (Auto) 86.1 72.2 Lymphocytes (%) (Auto) 7.8 17.8 Monocytes (%) (Auto) 5.5 9.0 Eosinophils (%) (Auto) 0.3 0.7 Basophils (%) (Auto) 0.3 0.3 Neutrophils # (Auto) 10.3 6.3 Lymphocytes # (Auto) 0.9 1.6 Monocytes # (Auto) 0.7 0.8 Eosinophils # (Auto) 0.0 0.1 Basophils # (Auto) 0.0 0.0 CBC Comment DIFF FINAL DIFF FINAL Differential Comment Prothrombin Time 10.4 Prothromb Time International Ratio 1.0 Activated Partial Thromboplast Time 24.6 Blood Urea Nitrogen 15 14 Creatinine 1.06 1.16 Random Glucose 88 92 Calcium Level 8.5 8.3 Magnesium Level 1.8 Sodium Level 138 139 Potassium Level 4.0 3.9 Chloride Level 103 105 Carbon Dioxide Level 27.8 26.1 Anion Gap 7 8 Estimat Glomerular Filtration Rate 74 67 Urine Color YELLOW Urine Turbidity CLEAR Urine pH 5.0 Urine Specific [place] 1.021 Urine Protein NEG Urine Glucose (UA) NEG Urine Ketones 10 Urine Occult Blood NEG Urine Nitrite NEG Urine Bilirubin NEG Urine Urobilinogen LESS THAN 2.0 Urine Leukocyte Esterase NEG Urine WBC 1 Urine Mucus FEW Microscopic Urinalysis Comment CULT NOT INDICATED Result Diagram: 06/03/1764106/03/17641 Imaging X-rays reviewed and CT were reviewed showing evidence of right ankle trimalleolar fracture subluxation with a relatively small posterior malleolar fragment Assessment & Plan Assessment and Plan Trimalleolar right ankle fracture dislocation. Ankle fracture from trauma PLAN: Surgical treatment of the right ankle for open treatment internal fixation with plates and screws. Full consent was obtained with the patient both in Serbian and Bengali. Work status: Unable to work for approximately 2-3 months. The need for treatment is related to his work injury. This level of dysfunction is category 1 per [place] [employer] Worker's Compensation guidelines. Anticipate maximum medical improvement in approximately 4-5 months. Surgery today and probably discharge to home tomorrow Elbert Kramer MD Jun 03, 2017 16:34
[2017-06-03] MEDS ORDERED: HYDR-3580 PO (16:42)
[2017-06-03] MEDS ORDERED: Post-op Orders (for Pharmacy) XX ONE (16:45)
[2017-06-03] MEDS ORDERED: MAGNESIUM HYDROXIDE SUSP 30 ML CUP PO PRN (16:45)
[2017-06-03] MEDS ORDERED: ONDANSETRON HCL 4 MG/2 ML VIAL IVP PRN (16:45)
[2017-06-03] MEDS ORDERED: ACETAMINOPHEN/HYDROcodone 325 MG/7.5 MG TAB PO PRN (16:45)
[2017-06-03] MEDS ORDERED: NALOXONE HCL 0.4 MG/ML AMP IV PUSH PRN (16:45)
[2017-06-03] MEDS ORDERED: MORPHINE SULFATE 30 MG/30 ML PCA IV SCH (16:45)
[2017-06-03] MEDS ORDERED: diphenhydrAMINE HCL 25 MG CAP PO PRN (16:45)
--- NOTE | 2017-06-03 16:46 | PD.OP ---
cc: Elbert Kramer MD Operative Report Date of Surgery: Jun 03, 2017 Preoperative Diagnosis: Trimalleolar fracture dislocation, right ankle Postoperative Diagnosis: Same Procedure: Open treatment internal fixation right bimalleolar fracture, ankle without posterior fixation Anesthesia: Gen. Surgeon: Elbert Kramer Side Panel Hanger(s): REENA Mejia Operation and Findings: EBL: 50 cc INDICATION: Patient is a 52-year-old male who fell off of the back of his work truck working yesterday. He had a unstable trimalleolar fracture dislocation. He presents for surgical treatment. NOTE: Caryn Mejia PA-C was present for the entire surgical procedure as my psychology assistant. In my medical opinion her skill and care was necessary for the proper management of this patient. PROCEDURE: The patient brought to the operating room and anesthetized in the supine position. The right leg was visualized under fluoroscopy. Antibiotics were given within an one hour time window and a timeout was done. The lateral side was approached. After exsanguination the tourniquet was inflated to 250 mmHg. A longitudinal incision was made. The fracture was exposed. Multiple clamps used to hold this in proper position. A proper length ITS locking plate plate was positioned and held. Multiple screws were placed as well as a lag screw. Overall alignment was satisfactory case was noted. The wound was closed in layers with 2-0 Vicryl 3-0 Vicryl and 3-0 nylon mattress sutures. A medial incision was made. A clamp was used to hold the medial malleolus and anatomic alignment. A cannulated screw system was utilized. 2 pins were placed in good fashion and position. There measured carefully. They were drilled and the proper length screws were advanced across the wire across the fracture. The fracture was reduced anatomically. The wound was closed with 3- 0 nylon in a mattress fashion The wound was irrigated copiously and hemostasis was controlled. Intraoperative imaging showed anatomic reduction. Alignment was satisfactory. A posterior splint was fitted and applied. The patient was awakened and taken to recovery room satisfactory condition. The sponge count and needle count and sponge counts were all correct FINDINGS: This was an unstable fracture. A syndesmotic screw was not necessary. The posterior malleolar fragment represented about 10-12% of the articular surface and was relatively nondisplaced. Surgical treatment of that portion of the fracture was not felt to be necessary. Elbert Kramer MD Jun 03, 2017 16:46
[2017-06-03] MEDS ORDERED: DO NOT ADM ANY ANTICOAGULANT DRUGS PRN (16:49)
[2017-06-03] MEDS: LACTATED RINGER'S 1000 ML INJ 1,000 ML IV SCH (17:30)
--- NOTE | 2017-06-03 17:59 | RADRPT ---
EXAM DATE/TIME: 06/03/2017 16:06 [place] COMPARISON: No previous studies available for comparison. INDICATIONS : ORIF right ankle fracture. MEDICAL HISTORY : Unobtainable. SURGICAL HISTORY : Unobtainable. ENCOUNTER: Subsequent ACUITY: 2 days PAIN SCORE: Non-responsive. LOCATION: Right ankle. FINDINGS: AP and lateral views of the right ankle were obtained and demonstrate that the patient is status post open reduction internal fixation. There is screw plate fixation device over the distal fibular fract ure and 2 lag-type screws transfix the medial malleolar fracture. The fracture fragments are in anato zachery alignment. CONCLUSION: Status post open rigid internal fixation. Elias Dawson MD on June 03, 2017 at 17:55 Board Certified Radiologist. This report was verified electronically.
[2017-06-03] MEDS: CALCIUM/VITAMIN D 250 MG/125 U TAB PO SCH (19:36)
[2017-06-03] MEDS: DOCUSATE SODIUM 50 MG/SENNA 8.6 MG TAB PO SCH (20:11)
[2017-06-03] MEDS: PCA - TOTAL MG MORPHINE DELIVERED PER SHIFT SCH (20:12)
[2017-06-04 00:05] VITALS: BP 145/79; PULSE 80; RESP 18; TEMP 97; O2SAT 99
[2017-06-04] MEDS: LACTATED RINGER'S 1000 ML INJ 1,000 ML IV SCH ×2 (02:35→12:35)
[2017-06-04 04:05] VITALS: BP 117/72; PULSE 74; RESP 17; TEMP 96.8; O2SAT 99
[2017-06-04] MEDS: PCA - TOTAL MG MORPHINE DELIVERED PER SHIFT SCH (06:00)
[2017-06-04 07:35] VITALS: BP 123/76; PULSE 64; RESP 19; TEMP 97.4; O2SAT 100
--- NOTE | 2017-06-04 07:51 | HHI.PR ---
Subjective Remarks pain controlled motivated with physical therapy Objective Vitals Vital Signs Date Time Temp Pulse Resp B/P (MAP) Pulse Ox O2 Delivery O2 Flow Rate FiO2 06/04/17 07:35 97.4 64 19 123/76 (92) 100 06/04/17 04:05 96.8 74 17 117/72 (87) 99 06/04/17 00:05 97.0 80 18 145/79 (101) 99 06/03/17 20:47 100 Nasal Cannula 2.00 06/03/17 20:14 Nasal Cannula 2.00 06/03/17 20:12 74 06/03/17 20:12 15 06/03/17 19:50 98.2 67 17 147/87 (107) 99 06/03/17 19:27 72 06/03/17 19:23 Nasal Cannula 2.00 06/03/17 18:15 97.7 67 11 135/63 (87) 100 Nasal Cannula 2 06/03/17 18:00 79 12 150/91 (110) 99 06/03/17 17:47 12 06/03/17 17:45 68 12 140/81 (100) 98 06/03/17 17:30 74 10 150/83 (105) 100 06/03/17 17:15 80 9 149/86 (107) 96 06/03/17 17:00 76 8 147/83 (104) 99 Nasal Cannula 2 06/03/17 16:46 98.8 76 10 123/68 (86) 97 Nasal Cannula 2 06/03/17 12:00 97.6 62 17 132/74 (93) 99 06/03/17 11:25 58 06/03/17 09:16 54 06/03/17 08:00 97.5 57 18 134/76 (95) 99 I/O 06/03/17 06/03/17 06/03/17 06/04/17 06/04/17 06/04/17 07:00 15:00 23:00 07:00 15:00 23:00 Intake Total 0 ml 1160 ml 240 ml Output Total 175 ml 700 ml 50 ml 200 ml Balance -175 ml -700 ml 1110 ml 40 ml Intake Oral 0 ml 360 ml 240 ml IV Total 800 ml Output Urine Total 175 ml 700 ml 200 ml Estimated Blood Loss 50 ml # Voids 1 # Bowel Movements 0 0 0 Result Diagram: 06/03/17 0642 06/03/17 0642 Imaging Last Impressions Lower Extremity CT 06/03/17 0000 Signed Impressions: Service Date/Time: May 12:10 - CONCLUSION: Normal examination. Os navicularis without evidence of fracture. Tibia and fibula fractures better seen on the CT the ankle. Lico Myrick MD Ankle X-Ray 06/03/17 0000 Signed Impressions: Service Date/Time: May 16:06 - CONCLUSION: Status post open rigid internal fixation. Elias Dawson MD Chest X-Ray 06/02/17 1631 Signed Impressions: Service Date/Time: Friday, June 02, 2017 17:16 - CONCLUSION: 1. No acute cardiopulmonary disease. Parth Escalante MD Foot X-Ray 06/02/17 1610 Signed Impressions: Service Date/Time: Friday, June 02, 2017 16:25 - CONCLUSION: Bimalleolar ankle fracture Possible small avulsion tarsal navicular. Romeo Garcia MD FACR Objective Remarks awake and alert,. no acute distress lungs clear regular rhythm abdomen soft right LE- post op dressing in place, good peripheral pulses Procedures 06/03- ORIF right trimalleolar fracture A/P Problem List: (1) Closed right trimalleolar fracture ICD Code: S82.851A - Displaced trimalleolar fracture of right lower leg, initial encounter for closed fracture Status: Acute (2) Tobacco abuse ICD Code: Z72.0 - Tobacco use Assessment and Plan Mr. 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 He had a significant deformity to right ankle and reported to the ED. Radiographic examination in the ED showed trimalleolar fracture with displacement and a manual reduction was attempted with sedation but was not effective in realigning bones. The patient is admitted to the hospitalist service for pre- operative management and orthopedic surgery is consulted for surgical repair in a.m. S/P ORIF 06/03 - right trimalleolar fracture -PT - Orthopedic ff Tobacco abuse - recommended smoking cessation - counselled JACK - patient was advised to lose weight - CPAP not recommended yet - OP ff up DVT prophylaxis post op - will defer to Ortho - choice - SCDs/TEDs discussed with patient and at bedside DC planning- - per family- workman's comp DC today- if cleared with Orthopedics surgery CM consult for DC planning Problem Qualifiers (1) Closed right trimalleolar fracture: Qualified Codes: S82.851A - Displaced trimalleolar fracture of right lower leg , initial encounter for closed fracture Ashley Deutsch MD Jun 04, 2017 07:51
--- NOTE | 2017-06-04 08:12 | PD.ORT.PN ---
Subjective Subjective Remarks No significant pain. is at bedside. Objective Vitals Vital Signs Date Time Temp Pulse Resp B/P (MAP) Pulse Ox O2 Delivery O2 Flow Rate FiO2 06/04/17 07:35 97.4 64 19 123/76 (92) 100 06/04/17 04:05 96.8 74 17 117/72 (87) 99 06/04/17 00:05 97.0 80 18 145/79 (101) 99 06/03/17 20:47 100 Nasal Cannula 2.00 06/03/17 20:14 Nasal Cannula 2.00 06/03/17 20:12 74 06/03/17 20:12 15 06/03/17 19:50 98.2 67 17 147/87 (107) 99 06/03/17 19:27 72 06/03/17 19:23 Nasal Cannula 2.00 06/03/17 18:15 97.7 67 11 135/63 (87) 100 Nasal Cannula 2 06/03/17 18:00 79 12 150/91 (110) 99 06/03/17 17:47 12 06/03/17 17:45 68 12 140/81 (100) 98 06/03/17 17:30 74 10 150/83 (105) 100 06/03/17 17:15 80 9 149/86 (107) 96 06/03/17 17:00 76 8 147/83 (104) 99 Nasal Cannula 2 06/03/17 16:46 98.8 76 10 123/68 (86) 97 Nasal Cannula 2 06/03/17 12:00 97.6 62 17 132/74 (93) 99 06/03/17 11:25 58 06/03/17 09:16 54 I/O 06/03/17 06/03/17 06/03/17 06/04/17 06/04/17 06/04/17 07:00 15:00 23:00 07:00 15:00 23:00 Intake Total 0 ml 1160 ml 240 ml Output Total 175 ml 700 ml 50 ml 200 ml Balance -175 ml -700 ml 1110 ml 40 ml Intake Oral 0 ml 360 ml 240 ml IV Total 800 ml Output Urine Total 175 ml 700 ml 200 ml Estimated Blood Loss 50 ml # Voids 1 # Bowel Movements 0 0 0 Result Diagram: 06/03/1742 1/11/18 0642 Objective Remarks Dressing intact. No drainage. Sensation normal. Mild swelling. Wiggles his toes Assessment & Plan Ortho Post Op Day #: 1 Problem List: Assessment and Plan Trimalleolar right ankle fracture dislocation. Surgery: ORIF right ankle with lateral plates and screws and medial screws PLAN: Stable orthopedically. No dressing change. Nonweightbearing right ankle/leg. Discharge to home today. [place] for pain. Return in 3 weeks. On return, suture removal and short leg nonweightbearing cast. Work status: This patient is unable to work related to the injury to his right ankle and surgery. He will be unable to work for approximately 2-3 months. Elbert Kramer MD Jun 04, 2017 08:11
--- NOTE | 2017-06-04 08:32 | HHI.DS ---
Discharge Summary Admission Date Jun 02, 2017 at 19:14 Discharge Date: Jun 04, 2017 Admitting Diagnosis trimalleolar fracture (1) Closed right trimalleolar fracture ICD Code: S82.851A - Displaced trimalleolar fracture of right lower leg, initial encounter for closed fracture Diagnosis: Principal Status: Acute (2) Tobacco abuse ICD Code: Z72.0 - Tobacco use Diagnosis: Secondary Procedures 06/03- ORIF right trimalleolar fracture Brief History - From Admission Mr. 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 He had a significant deformity to right ankle and reported to the ED. Radiographic examination in the ED showed trimalleolar fracture with displacement and a manual reduction was attempted with sedation but was not effective in realigning bones. The patient is admitted to the hospitalist service for pre- operative management and orthopedic surgery is consulted for surgical repair in a.m. The patient is seen in his hospital room. The [email or web address] tele-interpretation system is used for communication. Patient speaks minimal Kuwaiti and prefers instruction in Marshallese. The patient states that he was at work delivering for [employer] when he slipped on a wet floor with his right foot and fell on the ground. He said his right ankle appeared quite deformed and he was extremely scared initially. He was unable to bear weight on the right ankle and had to be brought to the hospital for evaluation. He reports minimal right ankle pain at the time of my visit after being medicated with when necessary IV morphine. He reports satisfaction with current analgesic regimen. He reported that severe pain in the right ankle occurred once he came to the ER. He denies any recent illness, fever, chills, cough, chest pain, shortness of breath, nausea, vomiting, diarrhea, or constipation. CBC/BMP: 06/03/17 0642 06/03/17 0642 Significant Findings Laboratory Tests Test 06/02/17 17:00 06/02/17 20:30 06/03/17 06:42 White Blood Count 11.9 TH/MM3 (4.0-11.0) Neutrophils (%) (Auto) 86.1 % (16.0-70.0) 72.2 % (16.0-70.0) Lymphocytes (%) (Auto) 7.8 % (9.0-44.0) Neutrophils # (Auto) 10.3 TH/MM3 (1.8-7.7) Lymphocytes # (Auto) 0.9 TH/MM3 (1.0-4.8) Estimat Glomerular Filtration Rate 74 ML/MIN (>89) 67 ML/MIN (>89) Urine Ketones 10 mg/dL (NEG) Urine Mucus FEW /lpf (OCC) Monocytes (%) (Auto) 9.0 % (0.0-8.0) Calcium Level 8.3 MG/DL (8.5-10.1) Imaging Last Impressions Lower Extremity CT 06/03/17 0000 Signed Impressions: Service Date/Time: May 12:10 - CONCLUSION: Normal examination. Os navicularis without evidence of fracture. Tibia and fibula fractures better seen on the CT the ankle. Lico Myrick MD Ankle X-Ray 06/03/17 0000 Signed Impressions: Service Date/Time: May 16:06 - CONCLUSION: Status post open rigid internal fixation. Elias Dawson MD Chest X-Ray 06/02/17 1631 Signed Impressions: Service Date/Time: Friday, June 02, 2017 17:16 - CONCLUSION: 1. No acute cardiopulmonary disease. Parth Escalante MD Foot X-Ray 06/02/17 1610 Signed Impressions: Service Date/Time: Friday, June 02, 2017 16:25 - CONCLUSION: Bimalleolar ankle fracture Possible small avulsion tarsal navicular. Romeo Garcia MD FACR PE at Discharge awake and alert,. no acute distress lungs clear regular rhythm abdomen soft right LE- post op dressing in place, good peripheral pulses Pt update on day of discharge pain controlled afebrile OP ff up discussed Hospital Course Mr. 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 He had a significant deformity to right ankle and reported to the ED. Radiographic examination in the ED showed trimalleolar fracture with displacement and a manual reduction was attempted with sedation but was not effective in realigning bones. The patient is admitted to the hospitalist service for pre- operative management and orthopedic surgery is consulted for surgical repair in a.m. S/P ORIF 06/03 - right trimalleolar fracture -PT - Orthopedic ff Tobacco abuse - recommended smoking cessation - counselled JACK - patient was advised to lose weight - CPAP not recommended yet - OP ff up DVT prophylaxis post op - will defer to Ortho - choice - SCDs/TEDs discussed with patient and at bedside DC planning- - per family- workman's comp DC today- if cleared with Orthopedics surgery CM consult for DC planning Pt Condition on Discharge: Stable Discharge Disposition: Discharge Home Discharge Time: <= 30 minutes Discharge Instructions DIET: Follow Instructions for: As Tolerated, No Restrictions Speech Therapy-Diet Recommends: Regular Activities you can perform: Non Weight Bearing Other Activity Instructions: non weightbearing right LE Follow up Referrals: Orthopedics - 3 Weeks with Elbert Kramer MD New Medications: Hydrocodone/Acetaminophen (Hydrocodone-Acetamin 7.5-325) 7.5 Mg-325 Mg Tablet 1 TAB PO Q4H PRN for PAIN LESS THAN 5 ON SCALE, #50 TAB Ashley Deutsch MD Jun 04, 2017 08:32
[2017-06-04] MEDS ORDERED: MULTIVITAMINS/MINERALS THERAPEUTIC TAB PO SCH (09:00)
[2017-06-04] MEDS: SODIUM CHLORIDE 0.9% FLUSH 10 ML FLUSH IV FLUSH SCH (09:00)
[2017-06-04] MEDS: CALCIUM/VITAMIN D 250 MG/125 U TAB PO SCH ×3 (10:18→16:50)
[2017-06-04] MEDS: ACETAMINOPHEN/HYDROcodone 325 MG/7.5 MG TAB PO PRN ×2 (10:19→16:49)
[2017-06-04] MEDS: DOCUSATE SODIUM 50 MG/SENNA 8.6 MG TAB PO SCH (10:19)
[2017-06-04 11:26] VITALS: BP 129/74; PULSE 75; RESP 19; TEMP 98.7; O2SAT 97
[2017-06-04 11:36] VITALS: RESP 16
[2017-06-04 12:00] VITALS: O2SAT 97
[2017-06-04] MEDS ORDERED: WALKER WHEELS/F1 MIS (13:37)
--- NOTE | 2017-06-07 08:56 | PD ---
Data Data Orders Orders Ankle, Complete (One0tms) (06/02/17 16:10) Foot, Complete (Moi7xds) (06/02/17 16:10) Ice/Cold Pack (06/02/17 16:10) Electrocardiogram (06/02/17 16:31) Complete Blood Count With Diff (06/02/17 16:31) Basic Metabolic Panel (Bmp) (06/02/17 16:31) Prothrombin Time / Inr (Pt) (06/02/17 16:31) Act Partial Throm Time (Ptt) (06/02/17 16:31) Urinalysis - C+S If Indicated (06/02/17 16:31) Magnesium (Mg) (06/02/17 16:31) Chest, Single Ap (06/02/17 16:31) Iv Access Insert/Monitor (06/02/17 16:31) Splint Or Brace Apply/Monitor (06/02/17 16:31) Propofol 200 Mg/20 Ml Inj (Diprivan 200 (06/02/17 18:30) Ankle, Limited (Ap&Lat) (06/02/17 ) Morphine Inj (Morphine Inj) (06/02/17 19:00) Admit Order (Ed Use Only) (06/02/17 ) Labs Laboratory Tests Test 06/02/17 17:00 White Blood Count 11.9 TH/MM3 Red Blood Count 5.03 MIL/MM3 Hemoglobin 15.5 GM/DL Hematocrit 46.6 % Mean Corpuscular Volume 92.6 FL Mean Corpuscular Hemoglobin 30.8 PG Mean Corpuscular Hemoglobin Concent 33.3 % Red Cell Distribution Width 13.0 % Platelet Count 191 TH/MM3 Mean Platelet Volume 9.6 FL Neutrophils (%) (Auto) 86.1 % Lymphocytes (%) (Auto) 7.8 % Monocytes (%) (Auto) 5.5 % Eosinophils (%) (Auto) 0.3 % Basophils (%) (Auto) 0.3 % Neutrophils # (Auto) 10.3 TH/MM3 Lymphocytes # (Auto) 0.9 TH/MM3 Monocytes # (Auto) 0.7 TH/MM3 Eosinophils # (Auto) 0.0 TH/MM3 Basophils # (Auto) 0.0 TH/MM3 CBC Comment DIFF FINAL Differential Comment Prothrombin Time 10.4 SEC Prothromb Time International Ratio 1.0 RATIO Activated Partial Thromboplast Time 24.6 SEC Blood Urea Nitrogen 15 MG/DL Creatinine 1.06 MG/DL Random Glucose 88 MG/DL Calcium Level 8.5 MG/DL Magnesium Level 1.8 MG/DL Sodium Level 138 MEQ/L Potassium Level 4.0 MEQ/L Chloride Level 103 MEQ/L Carbon Dioxide Level 27.8 MEQ/L Anion Gap 7 MEQ/L Estimat Glomerular Filtration Rate 74 ML/MIN MDM Supervised Visit with VERONIQUE: Yes Narrative Course The history, exam, and medical decision-making in the associated midlevel provider note were completed with my assistance. I reviewed and agree with the findings presented. I attest that I had a [id number] encounter with the patient on the same day, and personally performed and documented my assessment and findings in the medical record. *My assessment and Findings: This is a 52-year-old male who presents to the emergency department having had a mechanical fall resulting in a trimalleolar fracture of his ankle. He has a normal neurovascular exam and no other injuries. Ankle was reduced with conscious sedation by Dr. Farooq. Patient will be admitted for orthopedic surgery intervention tomorrow. Diagnosis Primary Impression: Closed right trimalleolar fracture Patient Instructions: Hydrocodone/Acetaminophen (By mouth), Home Safety (GEN), How to Choose and Use a Walker (GEN), ORIF of an Ankle Fracture (DC), Ice Pack Application (DC), Fall Prevention (DC) Scripts Walker with Front Wheels (Walker with Front Wheels) 1 Mis Mis EA .ROUTE DIRECTED for ambulation, #1 0 Refills Prov: Ashley Deutsch MD 06/04/17 Hydrocodone/Acetaminophen (Hydrocodone-Acetamin 7.5-325) 7.5 Mg-325 Mg Tablet 1 TAB PO Q4H Y for PAIN LESS THAN 5 ON SCALE, #50 TAB Prov: Elbert Kramer MD 06/03/17 Condition: Stable Shefali Clark MD Jun 07, 2017 08:56
== END 2017-06-04 17:18 | disposition home or self-care (01) | DRG 494 ==
LOC: NEPD 15:44 → NEDA 19:14 → N06B 21:06
PROVIDERS: ADMIT Internal Medicine; ATTEND Internal Medicine
PROC: 0QSJXZZ Reposition Right Fibula, External Approach (ICD-10-PCS; 2017-06-02)
PROC: 0QSGXZZ Reposition Right Tibia, External Approach (ICD-10-PCS; 2017-06-02)
PROC: 0QSG04Z Reposition Right Tibia with Internal Fixation Device, Open Approach (ICD-10-PCS; 2017-06-03)
PROC: 0QSJ04Z Reposition Right Fibula with Internal Fixation Device, Open Approach (ICD-10-PCS; principal; 2017-06-03 14:38)
DX: S82.851A Displaced trimalleolar fracture of right lower leg, initial encounter for closed fracture (principal); G47.33 Obstructive sleep apnea (adult) (pediatric); F17.210 Nicotine dependence, cigarettes, uncomplicated; W10.9XXA Fall (on) (from) unspecified stairs and steps, initial encounter
CPT/HCPCS: 27818; 71045; 73600; 73610; 73630; 73700; 76000; 80048; 81001; 83735; 85025; 85610; 85730; 93005; 94150; 96365; 99152; 99153; C1713; E0113; J0131; J0690; J1100; J1170; J1580; J2250; J2270; J2405; J3010; J7120